=== PATIENT | male | born 1945 | race Caucasian/White ===

== ENCOUNTER → 2024-10-10 11:03 | Outpatient (REF) | payer MEDICARE, SELFPAY | LOC: RAD 11:03 | PROVIDERS: ATTENDING PHYSICIAN Physician Assistant | DX: M79.672 Pain in left foot (principal); M25.572 Pain in left ankle and joints of left foot | CPT/HCPCS: 73610; 73630 ==

== ENCOUNTER 2024-10-26 19:27 | Observation (INO) | payer MEDICARE, SELFPAY ==
[2024-10-26 15:48] VITALS: BP 111/62
--- NOTE | 2024-10-26 17:12 | ED.GENMED ---
History of Present Illness
General
Chief Complaint: Breathing Problem
Source: patient
Exam Limitations: none
Time Seen by Provider: 10/26/24 16:59
Nursing documentation reviewed up to this point in time: agreed with
History of Present Illness
History of Present Illness:
79-year-old male with a past medical history of hypertension and hyperlipidemia who presents to the ER for evaluation of flulike illness�diagnosed with COVID as an outpatient and was referred to the ER with reportedly low pulse ox. Patient reports
he has been sick for the past 5 days. He reports subjective chills, sore throat, fatigue. He reports that he has had a cough productive of clear sputum. He reports very mild shortness of breath. No chest pain. He denies any GI symptoms�no
vomiting or diarrhea. He denies any other acute complaints. He went to see his primary doctor and was positive for COVID and apparently at the office had a low pulse ox (patient says that it was as low as 89%) and was referred to the ER to be
evaluated.
Review of Systems
Review of Systems
All Other Systems: ROS reviewed and negative except as documented in HPI and ROS
Constitutional: Reports fever, fatigue and chills
EENT: Reports sore throat; Denies runny nose
Respiratory: Reports cough and trouble breathing
Cardiac: Denies chest pain
ABD/GI: Denies abdominal pain, vomiting or diarrhea
: Denies flank pain
Musculoskeletal: Denies neck pain or back pain
Neurological: Denies headache
Phy Exam
Physical Exam
Physical Exam:
General: Awake, alert, oriented x3; no acute distress
Head: Normocephalic, atraumatic
Eyes: Conjunctiva normal
Throat: Airway intact, handling secretions, mild erythema in the posterior oropharynx
Neck: Trachea midline
Lungs: Low normal pulse ox 92% during my assessment; respiratory rate 16-18 without signs of respiratory distress; patient has scattered expiratory wheezing bilaterally
Heart: Regular rate and rhythm, no murmurs, gallops, or rubs
Abd: Soft, non distended, nontender
Neuro: Grossly intact, ambulatory
Extremities: No edema in extremities, no calf tenderness, equal pulses in all extremities
Scores
Heart Failure Risk
Heart Failure Risk Score: Not Applicable
Heart Score for Chest Pain Patients
STEMI patient?: Not applicable
Withdrawal Assessment of Alcohol
Withdrawal Assessment Completed?: Not applicable
Course
Orders/Labs/Results
Orders:
Orders
10/26/24 17:01
CR Chest - 2 Views Urgent
Comment:
Reason For Exam: COVID
10/26/24 17:10
Ipratropium/Albuterol Sulfate [Duoneb] 3 ml INH R NOW STA
10/26/24 17:27
COVID-19 Antigen Urgent
Source: Nasal Swab
Complete Blood Count/With Diff Urgent
Comprehensive Metabolic Panel Urgent
Abnormal Lab Results
10/26/24
17:27
RBC 3.87 L 10^6/uL
(4.70-6.10)
Hgb 11.7 L g/dL
(13.0-18.0)
Hct 34.3 L %
(39.0-52.0)
Absolute Lymphs (auto) 0.9 L 10^3/uL
(1.2-3.4)
Absolute Monos (auto) 0.9 H 10^3/uL
(0.1-0.6)
Lymphocytes % 11.8 L %
(20.5-51.1)
Monocytes % 11.8 H %
(1.7-9.3)
Sodium 131 L mmol/L
(135-145)
Glucose 105 H mg/dl
(70-99)
Alkaline Phosphatase 30 L U/L
(38-126)
Total Protein 6.1 L g/dl
(6.3-8.2)
SARS-CoV-2 Antigen Positive A
(Negative)
10/26/24 17:27
10/26/24 17:27
Vital Signs
Initial and Last Documented VS:
Initial Vital Signs
Temp Pulse Resp BP Pulse Ox
37.0 C 67 16 111/62 90
10/26/24 15:48 10/26/24 15:48 10/26/24 15:48 10/26/24 15:48 10/26/24 15:48
Last Documented Vital Signs
Temp Pulse Resp BP Pulse Ox
36.9 C 61 19 124/71 92
10/26/24 18:09 10/26/24 18:09 10/26/24 18:09 10/26/24 18:09 10/26/24 18:09
MDM/Problems Addressed
Differential Diagnosis Includes:
Bronchitis, pneumonia
MDM/Problems Addressed:
79-year-old male presents for evaluation of viral syndrome the past few days; tested positive for COVID in the office today. He was noted to have low pulse ox which prompted ER referral. Vitals and exam as above�low normal pulse ox here 90 to 92%
during my assessment. Physical exam as above. Suspect likely acute bronchitis secondary to viral infection. Send screening labs and check chest x-ray to rule out pneumonia. Monitor on continuous pulse oximetry. Can trial DuoNeb given his
wheezing. Reassess after the above.
Observed on continuous pulse oximetry and patient dipping down into the 80s with consistent value of 86 to 88% on room air. He was placed on 2 L nasal cannula with improvement to the low 90s.
Labs reviewed: CBC shows marginal anemia, CMP mild hyponatremia. COVID confirmed positive. Chest x-ray reviewed he does have retrocardiac opacity. Suspect viral pneumonia secondary to COVID. Hold on antibiotics. Will admit for continued
management�discussed with hospitalist for admission.
*Radiology
Radiology exam reviewed: preliminary read by ED provider
*Pulse Oximetry
SaO2: 93
Oxygen Mode of Delivery: Room air
Patient hypoxic: yes (86%)
*Critical Care Note
Total Time (30-74mins, 75-104mins- exclusive of procedures): Not Applicable
Data Reviewed
Source: patient and spouse
Patient Management
Discussion with other providers: Hospitalist (Discussed with hospitalist)
Escalation/DeEscalation of care consider admission/obs:
Admission indicated
ED Attending Note
-
Portions of this chart may have been created with voice recognition software.� Occasional wrong word or��sound alike� substitutions may have occurred due to the inherent limitations of voice recognition software.
Discharge Plan
Departure
Patient Disposition: Admit
Date of Disposition: 10/26/24
Time of Disposition: 18:34
Admit to doctor: Alber
Presentation/result/management discussed w/ accepting MD/DO: Hospitalist
Discharge Problem:
COVID-19, Pneumonia due to COVID-19 virus
Referrals:
Micheline Lopez PA-C [Family Provider]
Interventions
Interventions:
*Risk Screen - Suicide Last Done: 10/26/24 18:09
*General Assessment Last Done: 10/26/24 18:09
*Neglect/Abuse Screening Last Done: 10/26/24 18:09
*ED COVID-19 Vaccine History Last Done: 10/26/24 15:52
ED- Cardiac Assessment Last Done: 10/26/24 18:11
ED- Pulmonary Assessment Last Done: 10/26/24 18:11
Discharge Date and Time
Print Language: BARBADIAN
[2024-10-26 18:02] LABS: ALT (SGPT) 25 U/L (0-50); AST (SGOT) 28 U/L (17-59); Albumin 3.9 g/dl (3.5-5.0); Alkaline Phosphatase 30 U/L (38-126); Blood Urea Nitrogen 19 mg/dl (9-20); Calcium 8.5 mg/dl (8.4-10.2); Carbon Dioxide 25 mmol/L (22-30); Chloride 99 mmol/L (98-107); Glucose 105 mg/dl (70-99); Potassium 4.0 mmol/L (3.5-5.1); Sodium 131 mmol/L (135-145); Total Protein 6.1 g/dl (6.3-8.2); eGFR > 60.00
[2024-10-26 18:03] LABS: Hematocrit 34.3 % (39.0-52.0); Hemoglobin 11.7 g/dL (13.0-18.0); Mean Corp Hgb Conc. 34.1 g/dL (33.0-37.0); Mean Corpuscular Volume 88.6 fL (80.0-94.0); Nucleated Red Blood Cells % 0 % (-); Platelet Count 156 10^3/uL (130-400); Red Cell Dist. Width 13.0 % (11.5-14.5)
[2024-10-26 18:08] VITALS: BMI 25.1
[2024-10-26 18:09] VITALS: BP 124/71
[2024-10-26 18:12] LABS: COVID-19 Antigen Positive (Negative)
[2024-10-26] MEDS: DUONEB 3 ML INH (18:14)
[2024-10-26] MEDS: DECADRON 10 MG IV (19:08)
[2024-10-26 19:16] VITALS: BP 129/66
--- NOTE | 2024-10-26 19:16 | HPS.HSE ---
Addendum entered and electronically signed by Esha Campo MD 10/31/24 20:54:
Home meds not available at time of H&P.
Original Note:
Family Physician
-
Family Physician: Micheline Lopez PA-C
Chief Complaint
-
viral symptoms
History of Present Illness
79-year-old male past medical history of hypertension, hyperlipidemia, BPH, presenting with flulike illness. He has been sick for the past 5 days. He has subjective chills, sore throat, fatigue. He has cough productive of clear sputum. He has
very mild shortness of breath. No chest pain. Denies vomiting or diarrhea. He went to see his primary care physician today and was positive for COVID and was found to have low pulse ox down to 89%.
No prior history of smoking. Drinks alcohol occasionally.
Medical History
Past Medical History
Past Medical History: Reports Other (hypertension, hyperlipidemia, BPH)
Past Surgical History: Reports Other ( Hernia repair, hand surgery)
Social History
Tobacco: Non-smoker
Alcohol: None
Drug: None
Family History
Family History: Not pertinent
Allergies / Home Medications
Allergies reflects when Allergies were last updated in [employer].
Home Medications with original date entered in [employer]
Allergy/Medication List:
Allergies
Allergy/AdvReac Type Severity Reaction Status Date / Time
No Known Allergies Allergy Unverified 10/26/24 15:48
Review of Systems
-
History Source: Patient
A 12 point ROS was completed and negative except as noted: Yes
Constitutional: Reports No Symptoms
EENT: Reports No Symptoms
Respiratory: Reports See HPI
Cardiac: Reports No Symptoms
Abdomen/GI: Reports No Symptoms
: Reports No Symptoms
Musculoskeletal: Reports No Symptoms
Skin: Reports No Symptoms
Neurological: Reports No Symptoms
Endocrine: Reports No Symptoms
Hematologic/Lymphatic: Reports No Symptoms
Psych: Reports No Symptoms
Physical Exam
Vital Signs
Vital Signs
Temp Pulse Resp BP Pulse Ox
98.4 F 61 19 124/71 92
10/26/24 18:09 10/26/24 18:09 10/26/24 18:09 10/26/24 18:09 10/26/24 18:09
Physical Exam
General: Well Developed, Well Nourished and No Apparent Distress
HEENT: NormoCephalic, Moist mucous membranes and Atraumatic
Respiratory: Clear
Cardiac: S1/S2 and Regular Rhythm; No Murmur or Rub
GI: Soft, Non Tender, Non Distended and Normal Bowel Sounds; No Organomegaly
Rectal: Deferred by Provider
Musculoskeletal: No Clubbing, No Cyanosis and No Edema
Skin: No Rash
Neuro: Nonfocal/grossly intact
Laboratory Results
-
10/26/24 17:27
10/26/24 17:27
Laboratory Results
Total Bilirubin 0.6 mg/dl (0.2-1.3) 10/26/24 17:27
AST 28 U/L (17-59) 10/26/24 17:27
ALT 25 U/L (0-50) 10/26/24 17:27
Alkaline Phosphatase 30 U/L (38-126) L 10/26/24 17:27
Data Reviewed
-
Lab Data: Labs Reviewed by me
Old Records: Reviewed
Impression/Plan
-
IMPRESSION:
PLAN:
# COVID infection
-Chest x-ray does not appear to show any infiltrate
- Mild hypoxemia down to mid 80s
-Supplemental oxygen
- Dexamethasone 6 mg daily
Essential hypertension
Hyperlipidemia
BPH
Full code
DVT prophylaxis�heparin
Regular diet
[2024-10-26 20:00] VITALS: BP 114/64
[2024-10-26 20:39] VITALS: BP 122/66; BMI 24.3
[2024-10-26] MEDS: TYLENOL 650 MG PO (20:47)
[2024-10-26] MEDS: HEPARIN 5000 UNITS SC (20:48)
[2024-10-26 23:37] VITALS: BP 113/62
[2024-10-27 03:39] VITALS: BP 108/62
[2024-10-27 07:00] VITALS: BP 133/73
[2024-10-27] MEDS: DECADRON 6 MG PO (08:09)
[2024-10-27] MEDS: HEPARIN 5000 UNITS SC (08:11)
[2024-10-27 09:05] LABS: Hematocrit 35.3 % (39.0-52.0); Hemoglobin 12.0 g/dL (13.0-18.0); Mean Corp Hgb Conc. 34.0 g/dL (33.0-37.0); Mean Corpuscular Volume 87.8 fL (80.0-94.0); Nucleated Red Blood Cells % 0 % (-); Platelet Count 159 10^3/uL (130-400); Red Cell Dist. Width 12.9 % (11.5-14.5)
[2024-10-27 09:40] LABS: ALT (SGPT) 25 U/L (0-50); AST (SGOT) 30 U/L (17-59); Albumin 3.8 g/dl (3.5-5.0); Alkaline Phosphatase 32 U/L (38-126); Blood Urea Nitrogen 19 mg/dl (9-20); Calcium 9.2 mg/dl (8.4-10.2); Carbon Dioxide 26 mmol/L (22-30); Chloride 104 mmol/L (98-107); Estimated Creatinine Clearance 87 ml/min; Glucose 145 mg/dl (70-99); Potassium 3.8 mmol/L (3.5-5.1); Sodium 136 mmol/L (135-145); Total Protein 6.1 g/dl (6.3-8.2); eGFR > 60.00
--- NOTE | 2024-10-27 11:56 | CM ---
CM following re: discharge planning.
Reviewed pt's chart, met with pt.
Pt is an 79 year old male, admitted with OBS status and primary dx of COVID +. OBS status explained to the pt, pt expressed understanding, declined to sign, SORIANO letter placed on chart, pt has a copy.
AD information with AD brochure given to the pt.
Pt reports he lives with spouse 1SH, 2 steps to enter, has 2 supportive sons and 3 stepchildren. Pt described himself as independent in all areas [employer]. No DME, VN or SNF history.
PCP: Micheline Lopez
Pharmacy: [facility].
D/C plan: home with anticipated no needs. Spouse to transport at discharge.
CM will follow with discharge plan updates as hospitalization progresses
[2024-10-27] MEDS: MUCINEX 600 MG PO ×2 (12:15→21:03)
[2024-10-27] MEDS: VIBRAMYCIN 100 MG PO ×2 (12:15→21:03)
--- NOTE | 2024-10-27 13:28 | W.PN.UPDATE ---
Update Note
Progress Note Update
Seen and examined the patient independently. Plan formulated with the resident, agree with the plan
79-year-old man with history of URI symptoms for the past 5 to 6 days, tested for COVID in the doctor's office and was advised to go to ER
On examination awake alert oriented
Cardiovascular system S1-S2 appreciated
Chest few rales bilateral
Abdomen soft and nontender
No pedal edema
# COVID-19 infection-started with 5 to 6 days ago
Hold off on Paxlovid
No documented health hypoxia in the hospital
Wean off oxygen
Started on Decadron hopefully we can stop Decadron also soon
# Pneumonia
Possible secondary bacterial given productive yellowish-sputum
Add doxycycline
Mucinex
# Hyperlipidemia-patient states he takes simvastatin-confirm dosing before ordering
# Hypertension-need to verify the medicine prior to ordering
# Enlarged prostate-takes doxazosin-dosing needs to be confirmed prior to ordering
# DVT prophylaxis-Lovenox
# Full code
Discussed with nursing at bedside
--- NOTE | 2024-10-27 15:09 | W.PN.HOSP.TC ---
Today's Communication/Plan
-
Start Doxycycline, continue supportive care, wean off O2
Assessment / Plan
Assessment / Plan
IMPRESSION:
79 year old male with history of HTN, HLD, BPH, who presents with COVID pneumonia
PLAN:
COVID pneumonia:
Community acquired
Potentially superficial bacterial superimposed pneumonia
Moderate right diaphragm elevation. opacities in bibasilar region and RML. Mild to moderate R to L mediastinal shift
- Add Doxycycline 100mg BID
- Wean off O2 as able
- Discontinue Dexamethasone once off O2
- Mucinex, PRN albuterol, tylenol
Essential hypertension:
- BP stable at this time
- No reported meds
Hyperlipidemia:
- On Simvastatin. Pt to come with correct dosing information to continue
BPH:
- On Doxazosin - confirm dosin
DVT ppx: Lovenox
Code status: Full code
Anticipated Discharge: Within 24 hours
Subjective/Interval History
-
Date of Service: October 27, 2024
pt reports feeling better. cough now productive of yellow-greenish sputum
Objective Data
-
Labs:
Laboratory Results
10/27/24
08:41
WBC 8.2
Hgb 12.0 L
Hct 35.3 L
Plt Count 159
Sodium 136
Potassium 3.8
Chloride 104
Carbon Dioxide 26
BUN 19
Creatinine 0.7
Glucose 145 H
Calcium 9.2
Total Bilirubin 0.7
AST 30
ALT 25
Alkaline Phosphatase 32 L
Vital Signs:
Vital Signs
Temp Pulse Resp BP Pulse Ox
98.5 F 55 20 133/73 93
10/27/24 07:00 10/27/24 07:00 10/27/24 07:00 10/27/24 07:00 10/27/24 07:00
I&O
10/26/24 10/27/24 10/28/24
06:59 06:59 06:59
Intake Total 480 / 480 480 / 480
Balance 480 / 480 480 / 480
Review of Systems
-
History Source: Patient
Constitutional: Denies Fever, No Appetite, Fatigue or Chills
Respiratory: Reports Cough (with yellow-green sputum); Denies Hemoptysis, Trouble Breathing or Pleurisy
Cardiac: Denies Chest Pain, Palpitations or Syncope
Abdomen/GI: Denies Abdominal Pain, Nausea, Vomiting or Diarrhea
Genitourinary: Denies Dysuria or Difficulty Voiding
Physical Exam
-
General: Well Developed, Well Nourished and No Apparent Distress
HEENT: Normocephalic, Atraumatic and Moist Mucous Membranes
Respiratory: Crackles (bilateral lower lung dolan) and Non Labored Respirations; Negative Wheezes, Rales or Rhonchi
Cardiac: Regular Rhythm and S1/S2; Negative Murmur, Rub or Calf Tenderness
GI: Soft, Nontender, Nondistended and Normal Bowel Sounds
Musculoskeletal: No Clubbing, No Cyanosis and No Edema
Skin: Warm and Dry
Neuro: Awake, Alert and Oriented
Psych: Calm
[2024-10-27 15:13] VITALS: BP 143/74
[2024-10-27] MEDS: LOVENOX 40 MG SC (17:45)
[2024-10-27] MEDS: ANESTHETIC LOZENGE 1 LOZENGE PO ×2 (21:03→23:09)
[2024-10-27 23:32] VITALS: BP 154/80
[2024-10-28 07:35] VITALS: BP 139/82
[2024-10-28 07:55] LABS: Hematocrit 35.7 % (39.0-52.0); Hemoglobin 12.2 g/dL (13.0-18.0); Mean Corp Hgb Conc. 34.2 g/dL (33.0-37.0); Mean Corpuscular Volume 88.1 fL (80.0-94.0); Platelet Count 176 10^3/uL (130-400); Red Cell Dist. Width 12.7 % (11.5-14.5)
[2024-10-28 08:03] LABS: Blood Urea Nitrogen 19 mg/dl (9-20); Calcium 8.8 mg/dl (8.4-10.2); Carbon Dioxide 26 mmol/L (22-30); Chloride 107 mmol/L (98-107); Estimated Creatinine Clearance 101 ml/min; Glucose 120 mg/dl (70-99); Potassium 3.8 mmol/L (3.5-5.1); Sodium 137 mmol/L (135-145); eGFR > 60.00
[2024-10-28] MEDS: VIBRAMYCIN 100 MG PO (08:40)
[2024-10-28] MEDS: MUCINEX 600 MG PO (08:41)
[2024-10-28] MEDS: ANESTHETIC LOZENGE 1 LOZENGE PO (08:41)
[2024-10-28] MEDS: DECADRON 6 MG PO (08:41)
--- NOTE | 2024-10-28 13:16 | W.PN.HOSP.TC ---
Today's Communication/Plan
-
Discharge
Assessment / Plan
Assessment / Plan
79-year-old man with history of URI symptoms for the past 5 to 6 days, tested for COVID in the doctor's office and was advised to go to ER
On examination awake alert oriented
Cardiovascular system S1-S2 appreciated
Chest few rales bilateral
Abdomen soft and nontender
No pedal edema
# COVID-19 infection-started with 5 to 6 days ago
Hold off on Paxlovid
No documented health hypoxia in the hospital
Home oxygen evaluation ordered. Sats 94%
Short course of DexaMethasone
# Pneumonia
Possible secondary bacterial given productive yellowish-sputum
Continue doxycycline
Cough is not productive anymore since the start of doxycycline, finish the course
Mucinex
# Hyperlipidemia-patient states he takes simvastatin-confirm dosing before ordering
# Hypertension-need to verify the medicine prior to ordering
# Enlarged prostate-takes doxazosin-dosing needs to be confirmed prior to ordering
# DVT prophylaxis-Lovenox
# Full code
Discussed with nursing at bedside
Discussed with patient's on the phone from patient's cell phone
Unfortunately medications were not reconciled. Blood pressure remained stable. Patient to resume his antihypertensives and statin at home upon discharge.
Anticipated Discharge: Today
Subjective/Interval History
-
Date of Service: October 28, 2024
Objective Data
-
Labs:
Laboratory Results
10/28/24
06:54
WBC 7.8
Hgb 12.2 L
Hct 35.7 L
Plt Count 176
Sodium 137
Potassium 3.8
Chloride 107
Carbon Dioxide 26
BUN 19
Creatinine 0.6 L
Glucose 120 H
Calcium 8.8
Vital Signs:
Vital Signs
Temp Pulse Resp BP Pulse Ox
98.3 F 50 18 139/82 95
10/28/24 07:35 10/28/24 07:35 10/28/24 07:35 10/28/24 07:35 10/28/24 10:55
I&O
10/27/24 10/28/24 10/29/24
06:59 06:59 06:59
Intake Total 480 / 480 2200 / 2200
Balance 480 / 480 2200 / 2200
--- NOTE | 2024-10-28 13:21 | W.DS.TRANS ---
Addendum entered and electronically signed by Natty Nguyen MD 10/28/24 15:28:
Dictation- [id number]
Original Note:
DC Summary - Machine Taper
-
Discharge Instructions:
Discharge Diagnosis/Procedures COVID-19 infection
Secondary bacterial pneumonia
Hypertension
High cholesterol
Diet As tolerated
Activity As tolerated
Driving Restrictions As prior to admission
Others Tests Check X-ray in 4 weeks, if abnormal , need to
see a lung doctor.
Instructions:
Stand-Alone Forms:
Changes to Home Medications: Yes
Discharge Medications:
DC Medications w/original date entered in [facility]
albuterol sulfate 90 mcg/actuation aerosol inhaler 2 puff inhalation R [id number] PRN sob/wheeze #6.7 grams 10/28/24
dexamethasone 2 mg tablet 6 mg (3 x 2 mg) PO DAILY Lung/breathing issues #4 tabs 10/28/24
doxycycline hyclate 100 mg capsule 100 mg PO Q12 Lung/breathing issues #10 caps 10/28/24
guaifenesin 600 mg tablet, extended release 12 hr 600 mg PO Q12 Lung/breathing issues #0 tabs 10/28/24
Home Medication Changes
all above new
Pending Results: Yes (Sputum culture)
--- NOTE | 2024-10-28 13:35 | CM ---
CM following re: discharge planning.
Reviewed pt's chart, met with pt.
Discharge order noted. Pt is aware and he stated his spouse is coming to transport home.
No after care VN needs identified.
D/C plan: home no needs. Spouse to transport.
[2024-10-28 14:32] VITALS: BP 140/80
== END 2024-10-28 14:38 | disposition home or self-care (01) ==
LOC: 2 NORTH 19:27
PROVIDERS: Student in an Organized Health Care Education/Training Program; ADMITTING PHYSICIAN Hospitalist; ATTENDING PHYSICIAN Hospitalist; EMERGENCY PHYSICIAN Emergency Medicine; FAMILY PHYSICIAN Physician Assistant
DX: U07.1 COVID-19 (principal); J12.82 Pneumonia due to coronavirus disease 2019; E78.00 Pure hypercholesterolemia, unspecified; I10 Essential (primary) hypertension; J15.9 Unspecified bacterial pneumonia; J98.11 Atelectasis; R09.02 Hypoxemia; N40.0 Benign prostatic hyperplasia without lower urinary tract symptoms; Z79.899 Other long term (current) drug therapy
CPT/HCPCS: 71046; 80048; 80053; 85025; 85027; 87070; 87205; 87811; 93005; 94640; 96374; 99285; G0378